=== PATIENT | female | born 1965 | race Caucasian/White ===

== ENCOUNTER → 2024-08-31 | Outpatient (CLI) | payer OTHER ==
[2024-08-31 08:57] LABS: Basophils # (auto) 0 10 ^3/uL (0-0.2); Basophils % (auto) 0.4 % (0.0-2.0); Eosinophils # (auto) 0.1 10 ^3/uL (0-0.8); Eosinophils % (auto) 2.1 % (0.0-7.0); Hematocrit 44.4 % (36.0-46.0); Hemoglobin 15.4 g/dL (12.2-16.2); Lymphocytes # (auto) 2.1 10 ^3/uL (0.4-5.4); Lymphocytes % (auto) 35.1 % (10.0-50.0); Mean Corpuscular Hemoglobin 30.9 pg (28.0-32.0); Mean Corpuscular Hgb Conc. 34.8 g/dL (32.0-36.0); Mean Corpuscular Volume 88.8 fL (80.0-100.0); Monocytes # (auto) 0.4 10 ^3/uL (0-1.3); Monocytes % (auto) 6.6 % (0.0-12.0); Neutrophils # (auto) 3.3 10 ^3/uL (1.6-8.6); Neutrophils % (auto) 55.8 % (37.0-80.0); Platelet Count (auto) 183 10^3/uL (140-450); Red Cell Distribution Width 13.6 % (11.8-14.3); White Blood Cell 5.9 10^3/uL (4.4-10.8)
[2024-08-31 09:08] LABS: Urine Bacteria FEW /hpf (None Seen); Urine Blood Negative /uL (Negative); Urine Clarity Clear (Clear); Urine Color Light-Yellow (Yellow); Urine Protein, UAD Negative (Negative); Urine Specific Gravity 1.014 (1.001-1.035); Urine Urobilinogen Normal (Negative); Urine WBC 1 /hpf (0 - 5)
[2024-08-31 09:47] LABS: Alanine Aminotransferase 34 U/L (7-40); Albumin 4.6 g/dL (3.2-4.8); Alkaline Phosphatase 77 U/L (46-116); Anion Gap 8 (5-15); Aspartate Aminotransferase 15 U/L (13-40); BUN/Creatinine Ratio 16.9 (10.0-20.0); Blood Urea Nitrogen 13 mg/dL (9-23); Calcium 9.9 mg/dL (8.7-10.4); Carbon Dioxide 26 mmol/L (20-31); Chloride 107 mmol/L (98-107); Cholesterol 152 mg/dL (< 200); Glucose 92 mg/dL (74-106); HDL Cholesterol 59 mg/dL (40-59); LDL Cholesterol 80 mg/dL (< 100); Magnesium 2.2 mg/dL (1.6-2.6); Potassium 4.4 mmol/L (3.5-5.1); Sodium 141 mmol/L (136-145); Triglycerides 72 mg/dL (< 150)
[2024-08-31 09:48] LABS: Bilirubin, Total 0.9 mg/dL (0.2-1.0); Total Protein 6.7 g/dL (5.7-8.2)
[2024-08-31 10:27] LABS: Folate (Folic Acid) 14.85 ng/mL (>5.38)
[2024-08-31 12:08] LABS: Uric Acid 4.1 mg/dL (3.1-7.8)
== END | disposition home or self-care (01) ==
LOC: LAB 08:26
PROVIDERS: ATTEND Internal Medicine
DX: J45.20 Mild intermittent asthma, uncomplicated (principal); E78.01 Familial hypercholesterolemia; N98.8 Other complications associated with artificial fertilization; N04.9 Nephrotic syndrome with unspecified morphologic changes
CPT/HCPCS: 36415; 80053; 80061; 81001; 82306; 82607; 82746; 83036; 83735; 84443; 84550; 85025; 87086

== ENCOUNTER → 2025-03-05 | Outpatient (CLI) | payer OTHER ==
[2025-03-05 07:48] LABS: Basophils # (auto) 0 10 ^3/uL (0-0.2); Basophils % (auto) 0.3 % (0.0-2.0); Eosinophils # (auto) 0.2 10 ^3/uL (0-0.8); Eosinophils % (auto) 2.1 % (0.0-7.0); Hematocrit 43.4 % (36.0-46.0); Hemoglobin 15.2 g/dL (12.2-16.2); Lymphocytes # (auto) 2.2 10 ^3/uL (0.4-5.4); Lymphocytes % (auto) 28.9 % (10.0-50.0); Mean Corpuscular Hgb Conc. 35.1 g/dL (32.0-36.0); Mean Corpuscular Volume 88.3 fL (80.0-100.0); Monocytes # (auto) 0.4 10 ^3/uL (0-1.3); Monocytes % (auto) 5.9 % (0.0-12.0); Neutrophils # (auto) 4.8 10 ^3/uL (1.6-8.6); Neutrophils % (auto) 62.8 % (37.0-80.0); Platelet Count (auto) 189 10^3/uL (140-450); Red Blood Cells 4.92 10^6/uL (4.0-5.20); Red Cell Distribution Width 12.8 % (11.8-14.3); White Blood Cell 7.6 10^3/uL (4.4-10.8)
[2025-03-05 08:03] LABS: Urine Bacteria MOD /hpf (None Seen); Urine Blood Negative /uL (Negative); Urine Clarity Clear (Clear); Urine Color Yellow (Yellow); Urine Mucus FEW (None Seen); Urine Protein, UAD Negative (Negative); Urine Specific Gravity 1.027 (1.001-1.035); Urine Squamous Epithelial Cell FEW /hpf (<5); Urine Urobilinogen Normal (Negative); Urine WBC 44 /HPF (0-5)
[2025-03-05 08:17] LABS: Alanine Aminotransferase 38 U/L (7-40); Alkaline Phosphatase 75 U/L (46-116); Anion Gap 9 (5-15); BUN/Creatinine Ratio 24.7 (10.0-20.0); Blood Urea Nitrogen 20 mg/dL (9-23); Calcium 9.8 mg/dL (8.7-10.4); Carbon Dioxide 24 mmol/L (20-31); Chloride 108 mmol/L (98-107); Glucose 108 mg/dL (74-106); LDL Cholesterol 76 mg/dL (< 100); Magnesium 2.2 mg/dL (1.6-2.6); Potassium 4.3 mmol/L (3.5-5.1); Sodium 141 mmol/L (136-145); Total Protein 6.6 g/dL (5.7-8.2); Triglycerides 62 mg/dL (< 150)
[2025-03-05 08:18] LABS: Albumin 4.7 g/dL (3.2-4.8); Aspartate Aminotransferase 18 U/L (13-40); Cholesterol 150 mg/dL (< 200); HDL Cholesterol 56 mg/dL (40-59)
[2025-03-05 08:19] LABS: Bilirubin, Total 0.4 mg/dL (0.2-1.0)
[2025-03-05 09:04] LABS: Uric Acid 3.1 mg/dL (3.1-7.8)
[2025-03-05 11:13] LABS: Folate (Folic Acid) 12.42 ng/mL (>5.38)
== END | disposition home or self-care (01) ==
LOC: LAB 07:15
PROVIDERS: ATTEND Internal Medicine
DX: E55.9 Vitamin D deficiency, unspecified (principal); R73.09 Other abnormal glucose; R94.6 Abnormal results of thyroid function studies; E61.2 Magnesium deficiency; R82.90 Unspecified abnormal findings in urine; R68.89 Other general symptoms and signs; R79.89 Other specified abnormal findings of blood chemistry
CPT/HCPCS: 36415; 80053; 80061; 81001; 82306; 82607; 82746; 83036; 83735; 84443; 84550; 85025; 87086

== ENCOUNTER → 2025-06-15 | Day surgery (SDC) | payer OTHER ==
[2025-06-13 09:22] LABS: Hematocrit 45.1 % (36.0-46.0); Hemoglobin 15.6 g/dL (12.2-16.2); Mean Corpuscular Hemoglobin 30.9 pg (28.0-32.0); Mean Corpuscular Volume 89.3 fL (80.0-100.0); Nucleated Red Blood Cells % 0.1 %
[2025-06-13 09:37] LABS: INR 0.97 (0.9-1.15); Partial Thromboplastin Time 25.2 SEC (24.5-34.5); Prothrombin Time 10.3 sec (9.3-11.8)
[2025-06-13 10:01] LABS: Alanine Aminotransferase 27 U/L (7-40); Alkaline Phosphatase 68 U/L (46-116); Anion Gap 7 (5-15); BUN/Creatinine Ratio 23.1 (10.0-20.0); Blood Urea Nitrogen 18 mg/dL (9-23); Calcium 10.2 mg/dL (8.7-10.4); Carbon Dioxide 27 mmol/L (20-31); Chloride 106 mmol/L (98-107); Glucose 100 mg/dL (74-106); Potassium 4.6 mmol/L (3.5-5.1); Sodium 140 mmol/L (136-145); Total Protein 6.5 g/dL (5.7-8.2)
[2025-06-13 10:02] LABS: Albumin 4.5 g/dL (3.2-4.8)
[2025-06-13 10:03] LABS: Bilirubin, Total 0.6 mg/dL (0.2-1.0)
[~2025-06-15] VITALS: Ht 162.6 cm; Wt 68.0 kg
[2025-06-15] MEDS: fentaNYL CITRATE 100 MCG/2 ML VL ONE (09:19)
[2025-06-15] MEDS: MIDAZOLAM HCL 2MG/2ML 2ml VIAL (1mg/ml) ONE (09:19)
[2025-06-15 09:39] VITALS: TEMP 97.7
--- NOTE | 2025-06-15 09:40 | DVHNC2 ---
Procedure - PROCEDURE DAY JUNE 15, 2025 PERFORMED BY: DR. COYLE REFERRING PROVIDER:DR CAMPOS PROCEDURE PERFORMED: 1. COLONOSCOPY WITH MODERATE SEDATION 2. COLONOSCOPY WITH POLYPECTOMY WITH COLD BIOPSY FORCEPS PREPROCEDURE DIAGNOSIS: 1. COLON CANCER SCREENING 2. HISTORY OF COLON POLYPS POSTPROCEDURE DIAGNOSIS: 1. SMALL EXTERNAL HEMORRHOIDS 2. 3MM POLYP TRANSVERSE COLON MEDICATIONS USED;5MG OF VERSED AND 100 MCG OF FENTANYL IV INDICATIONS FOR PROCEDURE: THE PATIENT IS A 60-YEAR-OLD FEMALE PRESENTS FOR OUTPATIENT COLONOSCOPY FOR SCREENING. SHE HAS A PRIOR HX OF COLON POLYPS DETAILS OF THE PROCEDURE: INFORMED CONSENT WAS OBTAINED AFTER RISKS BENEFITS AND ALTERNATIVES WERE DISCUSSED AT LENGTH WITH THE PATIENT. THE PATIENT GAVE CONSENT TO THE PROCEDURES WELL A MEDICATION USED FOR SEDATION. RECTAL EXAMINATION SHOWED EXTERNAL HEMORRHOIDS. OLYMPUS VARIABLE TORSION ADULT COLONOSCOPE WAS INSERTED INTO THE RECTUM ADVANCE THE CECUM. THE SCOPE WAS THEN WITHDRAWN. THE PREP WAS GOOD WITH ONLY SMALL AMOUNTS OF STOOL. THERE WERE NO LARGE POLYPS, MASSES, STRICTURES, OR ARTERIOVENOUS MALFORMATION SEEN. THE PATIENT HAD A 3 MM TRANSVERSE COLON POLYP REMOVED COMPLETELY WITH COLD BIOPSY FORCEPS. MORE THAN 6 MINUTES WITHDRAWAL TIME WAS NOTED. RETROFLEXION SHOWED NO ABNORMALITIES. PATIENT TOLERATED THE PROCEDURE WELL. BOSTON BOWEL PREP SCORE: 8 COLONOSCOPY START TIME: 9:26A.M. COLONOSCOPY CECUM TIME: 9:30A.M. COLONOSCOPY END TIME:9:36A.M. IMPRESSION: 1. ONE SMALL COLON POLYPS AND EXTERNAL HEMORRHOIDS. RECOMMENDATIONS: 1. FOLLOW UP WITH PRIMARY CARE PHYSICIAN 2. HIGH-FIBER DIET 3. REPEAT COLONOSCOPY IN 5 YEARS UNLESS OTHERWISE INDICATED BY PATHOLOGY OR SYMPTOMS I WOULD LIKE TO THANK DR. CAMPOS FOR THE REFERRAL AMAN COYLE MD Jun 15, 2025 09:40
[2025-06-15 10:25] VITALS: BP 132/58; PULSE 71; RESP 10; O2SAT 98
== END | disposition home or self-care (01) ==
LOC: GI 08:48 → EDUNIT# 08:48
PROVIDERS: ATTEND Specialist
DX: Z12.11 Encounter for screening for malignant neoplasm of colon (principal); K63.5 Polyp of colon; Z86.0100 Personal history of colon polyps, unspecified
CPT/HCPCS: 36415; 45380; 80053; 85025; 85610; 85730; J2250; J3010